=== PATIENT | male | born 1965 | race Caucasian/White ===

== ENCOUNTER 2016-08-27 18:12 | Emergency (ER) | payer OTHER ==
[~2016-08-27 18:12] MED LIST: ACETAMINOPHEN PO; ASPIRIN PO; CLEOCIN HCL300 M1 PO; NAPROXEN PO; PERCOCET 10/3251 TAB PO; [UNRECOGNIZED DRUG - OTHER]
== END 2016-08-28 02:44 | disposition expired ==
LOC: SED 18:12
DX: I46.9 Cardiac arrest, cause unspecified (principal); Z79.2 Long term (current) use of antibiotics
CPT/HCPCS: 92950; 99281; 99285